=== PATIENT | female | born 1955 | race Caucasian/White ===

== ENCOUNTER → 2021-12-28 | Outpatient (CLI) | payer MEDICARE ==
[~2021-12-28] MED LIST: ACETAMINOPHEN325 MG PO; ELIQUIS 2.5 MG2.5 MG PO; PERCOCET 5/325 T1 EA PO; THERAGRAN M TAB1 EA PO
== END ==
LOC: EXRD 10:51
DX: M81.0 Age-related osteoporosis without current pathological fracture (principal)
CPT/HCPCS: 77080